=== PATIENT | male | born 1995 | race Caucasian/White ===

== ENCOUNTER 2020-05-13 06:27 | Emergency (ER) | payer SELFPAY ==
[~2020-05-13] VITALS: Ht 180.3 cm; Wt 95.4 kg
[2020-05-13 06:33] VITALS: BP 131/83
--- NOTE | 2020-05-13 06:46 | PHYS DOC ---
General Adult EDM: Chief Complaint: HAND PROBLEM HPI: HPI: Patient is a 25-year-old male presenting to the ER with a chief complaint of right hand injury. Patient states that injury occurred 2 days ago morning when he punched a glass window. Patient states that the pain got worse today and so he came into the ER. Patient states that he cleaned out on the glass 2 days ago when the injury occurred. Patient states that his tetanus vaccination is up-to-date. No other injuries reported. Review of Systems: Review of Systems: Constitutional: Denies fever or chills Eyes: Denies change in visual acuity HENT: Denies nasal congestion or sore throat Respiratory: Denies cough or shortness of breath Cardiovascular: Denies chest pain or edema GI: Denies abdominal pain, nausea, vomiting : Denies dysuria Musculoskeletal: Complains of pain and swelling to his right hand. Multiple abrasions present on the right hand. Neurologic: Denies headache, focal weakness or sensory changes Heart Score: Risk Factors: Risk Factors: DM, Current or recent (<one month) smoker, HTN, HLP, family history of CAD, obesity. Risk Scores: Score 0 - 3: 2.5% MACE over next 6 weeks - Discharge Home Score 4 - 6: 20.3% MACE over next 6 weeks - Admit for Clinical Observation Score 7 - 10: 72.7% MACE over next 6 weeks - Early Invasive Strategies Physical Exam: PE: Constitutional: Well developed, well nourished, no acute distress, non-toxic appearance. [] HENT: Normocephalic, atraumatic Eyes: EOMI Neck: Normal range of motion, Supple Respiratory: No respiratory distress Extremities: Tenderness and swelling to the right hand. Multiple abrasions present. Neurovascularly intact. Neurologic: Alert and oriented X 3 EKG: EKG: [] Radiology/Procedures: Radiology/Procedures: [] Impressions: Impression: Mild displaced probable comminuted fracture of the base of the fifth metacarpal extending into the carpometacarpal joint. Course & Med Decision Making: Course & Med Decision Making Pertinent Imaging studies reviewed. (See chart for details) Ordered x-ray of the right hand. Patient is texting without any difficulty with his right hand. Xray shows Impression: Mild displaced probable comminuted fracture of the base of the fifth metacarpal extending into the carpometacarpal joint. Will place patient in ulnar gutter and refer him to ortho. Splint re-eheck shows good capillary refill and NV intact. 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 Pt can be seen as an out patient. Discussed results and plan of care with patient. Patient is instructed to follow up with PCP in one to 2 days. Appropriate discharge instructions given to patient to return to the ED or to seek immediate medical evaluation. Patient is instructed to return to the ED if symptoms worsen or if any concerns. Dragon Disclaimer: Dragon Disclaimer: This electronic medical record was generated, in whole or in part, using a voice recognition dictation system. Departure Departure: Impression: Primary Impression: Hand fracture, right Disposition: 01 HOME/RESIDENCE PRIOR TO ADM Condition: STABLE Referrals: PCPPROSPER (PCP) NIKOLAY HANSEN II, MD Please call today for an appointment MATT. Patient Instructions: Hand Fracture, Fifth Metacarpal Additional Instructions: Discussed results and plan of care with patient. Patient is instructed to follow up with PCP in one to 2 days. Appropriate discharge instructions given to patient to return to the ED or to seek immediate medical evaluation. Patient is instructed to return to the ED if symptoms worsen or if any concerns. Please take Motrin or Tylenol for pain control. Justification of Admission: Justification of Admission: Justification of Admission Dx: ELIEL Jacob DO May 13, 2020 06:46
--- NOTE | 2020-05-13 07:03 | RAD ---
Examination: 3 views of the right hand HISTORY: History of an injury punched a window COMPARISON: None available. Findings: The alignment of the metacarpophalangeal joints, interphalangeal grossly appears unremarkable. There is mild displaced probable comminuted fracture of the base of the fifth metacarpal extending into the carpometacarpal joint. Impression: Mild displaced probable comminuted fracture of the base of the fifth metacarpal extending into the carpometacarpal joint. Electronically signed by: Thien Byrd MD (05/13/2020 7:00 AM) [id number]
== END 2020-05-13 07:41 | disposition home or self-care (01) ==
LOC: ER 06:27
DX: S62.316A Displaced fracture of base of fifth metacarpal bone, right hand, initial encounter for closed fracture (principal); R60.0 Localized edema; W25.XXXA Contact with sharp glass, initial encounter; Y93.89 Activity, other specified; Y92.89 Other specified places as the place of occurrence of the external cause; Y99.8 Other external cause status
CPT/HCPCS: 29125; 73130; 99283